=== PATIENT | male | born 1945 | race Caucasian/White ===

== ENCOUNTER 2023-05-25 15:09 | Emergency (ER) | payer MEDICARE, BC ==
--- NOTE | 2023-05-25 15:13 | ERPHSYRPT ---
- History of Present Illness Time Seen by Provider: 05/25/23 15:13 Source: patient, family Exam Limitations: no limitations Physician History: This is a right-handed 77-year-old white male who has fractured his right wrist in the past (radius, distal) and presents to the emergency department with right wrist pain, ulnar aspect after a fall sometime between yesterday evening and noon today. The patient lives alone and does not recall exactly what happened but there is pain in that area. Occurred: yesterday Method of Injury: unknown Quality: aching Severity of Pain-Max: mild Severity of Pain-Current: mild Extremities Pain Location: wrist: right (Ulnar aspect) Modifying Factors: Improves With: movement Associated Symptoms: none Allergies/Adverse Reactions: No Known Drug Allergies Allergy (Unverified 05/25/23 15:20) Travel Risk - International Travel Have you traveled outside of the country in past 3 weeks: No - Coronavirus Screening Are you exhibiting any of the following symptoms?: No Close contact with a COVID-19 positive Pt in past 14-21 Days: No - Review of Systems Constitutional: No Symptoms Eyes: No Symptoms Ears, Nose, & Throat: No Symptoms Respiratory: No Symptoms Cardiac: No Symptoms Abdominal/Gastrointestinal: No Symptoms Genitourinary Symptoms: No Symptoms Musculoskeletal: Injury (Right wrist) Skin: No Symptoms Neurological: No Symptoms Psychological: No Symptoms Endocrine: No Symptoms Hematologic/Lymphatic: No Symptoms Immunological/Allergic: No Symptoms All Other Systems: Reviewed and Negative - Past Medical History Pertinent Past Medical History: Yes - Past Surgical History Past Surgical History: Yes - Nursing Vital Signs Nursing Vital Signs: Initial Vital Signs Temperature 96.9 F 05/25/23 15:20 Pulse Rate 70 05/25/23 15:20 Respiratory Rate 18 05/25/23 15:20 Blood Pressure 113/71 05/25/23 15:20 O2 Sat by Pulse Oximetry 98 05/25/23 15:20 Pain Scale Pain Intensity 8 - Physical Exam General Appearance: no apparent distress, alert Eyes, Ears, Nose, Throat Exam: normal ENT inspection, moist mucous membranes Neck Exam: normal inspection, non-tender, supple, full range of motion Cardiovascular/Respiratory Exam: chest non-tender, no respiratory distress Abdominal Exam: non-tender Back Exam: normal inspection, normal range of motion, No CVA tenderness, No vertebral tenderness Shoulder Exam: normal inspection, non-tender, no evidence of injury, normal ROM Elbow/Forearm Exam: normal inspection, non-tender, no evidence of injury, normal ROM Wrist Exam: normal inspection, no evidence of injury, normal ROM, bone tenderness (Distal, ulnar aspect), soft tissue tenderness (Ulnar aspect, distal) Hand Exam: normal inspection, non-tender, no evidence of injury, normal ROM Neuro/Tendon Exam: normal sensation, normal motor functions, normal tendon functions Mental Status Exam: alert, oriented x 3, cooperative Skin Exam: normal color, warm, dry SpO2 Interpretation: normal O2 Delivery: Room Air - Course Nursing assessment & vital signs reviewed: Yes Ordered Tests: Active Orders 24 hr Category Date Time Status WRIST (MIN 3 VIEWS) Stat Exams 05/25/23 15:18 Taken - Progress Progress: unchanged Progress Note: 05/25/23 15:45 This patient's medical issue is 1 of low complexity. Level of complexity in the work-up performed based on review of the patient's past medical history, review the patient's medication list, review of the patient's drug allergy list, history of present illness and physical findings on examination. The patient's work-up today includes x-ray of the right wrist. I reviewed the reviewed and interpreted the x-ray of the patient's right wrist. I do not appreciate an acute fracture or dislocation. We will place him in a splint. He is to follow- up in the orthopedic clinic if pain persist beyond 48 hours despite wearing the wrist splint and using ice and Tylenol for pain control. Counseled pt/family regarding: diagnosis, need for follow-up, rad results Medical Desision Making - Independent Historian Additional History obtained from: Child - Diagnostic Testing Diagnostic test were ordered, analyzed, and reviewed by me: Yes Radiological Interpretation: Interpreted by me, Teleradiologist Report - Risk of complications Low Risk: Low risk of morbidity from additional dx testing or treatment - Departure Departure Disposition: Home Clinical Impression: Right wrist pain Condition: Stable Critical Care Time: No Referrals: JEREL GLEASON [Primary Care Provider] - Follow up/PCP as directed Additional Instructions: Ice pack to right wrist 3 times a day for the next 48 hours. Use Tylenol for pain control. Wear the Velcro wrist splint for pain control. Follow-up in [facility] orthopedic clinic for right wrist pain lasting greater than 48 to 72 hours. It is a clinic that is open Friday through Friday 8 AM to 10 AM. There is a walk-in clinic and you do not need to have an appointment.
[2023-05-25 15:34] VITALS: BP 113/71; PULSE 70; RESP 18; TEMP 96.9; O2SAT 98
--- NOTE | 2023-05-25 19:34 | XRAY ---
Indication: Pain, swelling, and erythema. Comparison: None 3 view right wrist demonstrates osteopenia, moderate multangular scaphoid degenerative changes, radiocarpal degenerative joint space narrowing, and ulnocarpal degenerative chondrocalcinosis. No other bony, articular, or soft tissue abnormalities.
== END 2023-05-25 16:00 | disposition home or self-care (01) ==
LOC: ED 15:09
DX: M25.531 Pain in right wrist (principal); W19.XXXA Unspecified fall, initial encounter
CPT/HCPCS: 73110; 99282; L3908